=== PATIENT | female | born 1980 | race Caucasian/White ===

== ENCOUNTER 2020-10-17 21:00 | Emergency (ER) | payer OTHER, SELFPAY ==
--- NOTE | 2020-10-17 21:21 | XRR_ITS ---
PROCEDURE INFORMATION: Exam: XR Left Knee Exam date and time: 10/17/2020 10:17 PM Age: 39 years old Clinical indication: Pain and injury or trauma; Other: Not specified; Blunt trauma; Knee; Left; Injury date: 10/14/20; Additional info: Left knee injury TECHNIQUE: Imaging protocol: XR Left knee. Views: 3 views. COMPARISON: No relevant prior studies available. FINDINGS: Bones/joints: Osseous structures of the knee normal. No fracture. No joint effusion. Soft tissues unremarkable. Soft tissues: See Bones/joints finding. XR/XR knee LT 3V* [id number] IMPRESSION: Normal knee.
[2020-10-17 21:32] VITALS: BP 120/68; PULSE 89; RESP 18; TEMP 36.8; O2SAT 99; BMI 21.4
--- NOTE | 2020-10-17 22:25 | ED_ITS ---
HPI - Extremity Problem General: Chief complaint: Extremity Injury, Lower Stated complaint: L KNEE INJURY Time Seen by Provider: 10/17/20 21:42 History of Present Illness: HPI Narrative: Patient is a 39-year-old female comes to the ED with left knee injury. Patient says she was jumping off the back of a truck that on Saturday and hyperextend her left knee when she landed. Patient says she cannot bear any weight on left leg due to knee pain. She reports having some swelling on left knee as well. Associated symptoms: Deny chest pain, fever(s) or rash Review of Systems Const: Denies: fever(s), chills or fatigue Eyes: Denies: change in vision or eye discomfort ENMT: Denies: throat pain, odynophagia, nasal discharge or nasal congestion Card: Denies: chest pain, palpitations, edema, swelling of feet/ankles, dyspnea on exertion or orthopnea Resp: Denies: dyspnea, productive cough or non-productive cough GI: Denies: abdominal pain, nausea, vomiting, diarrhea, constipation or hematochezia : Denies: flank pain, dysuria or hematuria Musc: Reports: extremity pain (left knee pain); Denies: neck pain, back pain or extremity swelling Skin/Breast: Denies: rash or new lesions Neuro: Denies: headache(s), numbness in extremities or weakness in extremities Physical Exam Const: COMMON NORMALS: no acute distress, patient oriented x3, healthy appearing and alert GENERAL APPEARANCE: cooperative and comfortable HENMT: COMMON NORMALS: normocephalic HEAD & SCALP: normocephalic MOUTH: Normal oral and palatal mucosa present THROAT: posterior oropharynx normal and uvula midline Eye: COMMON NORMALS: Equal, round and reactive pupils present PUPIL: Yes Equal, round and reactive pupils present Neck/C-Spine: COMMON NORMALS: supple GENERAL: Yes normal visual inspection Resp: COMMON NORMALS: normal respiratory effort, No retractions, No use of accessory muscles and clear to auscultation bilaterally AUSCULTATION: clear to auscultation bilaterally Cardio: COMMON NORMALS: regular rate, regular rhythm, S1 normal heart sound present, S2 normal heart sound present, No gallops present (Cardio), No clicks present (Cardio), No murmurs present (Cardio) and Peripheral pulses 2+ thr oughout RATE: regular rate RHYTHM: regular rhythm HEART SOUNDS: S1 normal heart sound present and S2 normal heart sound present PERIPHERAL PULSES: Peripheral pulses 2+ throughout GI: COMMON NORMALS: Normal to inspection, nondistended, normoactive bowel sounds present, Soft to palpation, non-tender and no masses PALPATION: Yes Soft to palpation : COMMON NORMALS: Yes no CVA tenderness BLADDER/KIDNEY EXAM: Yes no CVA tenderness Back/Pelvis: COMMON NORMALS: no CVA tenderness Extremity: NARRATIVE EXTREMITY EXAM: Left knee?edema left knee, no visible deformity seen. Patient has tenderness on superior aspect of knee and in the posterior aspect of knee. Pain with range of motion. Neurovascular tact distally. Neuro: COMMON NORMALS: patient oriented x3 and moves all extremities SENSORIUM/ORIENTATION: Yes alert Skin: GENERAL SKIN EXAM: dry skin Course Vital Signs: Vital signs: Vital Signs Temperature 98.2 F 10/17/20 21:32 Pulse Rate 80 10/17/20 22:30 Respiratory Rate 16 10/17/20 22:30 Blood Pressure 106/73 10/17/20 22:30 Pulse Oximetry 100 10/17/20 22:30 MDM - Extremity (Nontraumatic) MDM Narrative: Medical decision making narrative: Patient is a 39-year-old female comes to the ED with left knee injury. Patient was jumping off the back of truck and landed hyperextending left knee. Injury occurred several days ago when she has been unable to bear weight on left leg. Exam shows some swelling around left knee. Tenderness palpation over superior and posterior aspect of knee. Pain with range of motion. Left knee x-ray showed some knee joint effusion but no acute fracture seen. Patient was put in a knee immobilizer and sent home with crutches. She is diagnosed with left knee injury and effusion of knee joint and I placed an order with case management for patient be referred to orthopedic doctor. Patient was discharged home with prescription of ibuprofen 800. She was told to rest ice and elevate left leg. Return to ED precautions given. I told her that clinical case manager will contact her in the next several days set up an appoint with orthopedic doctor. Patient understood and agree with plan. Imaging Data^: Xray Ortho: Attestation: I personally reviewed and interpreted this imaging study as follows: My impression: Left knee x-ray showed no acute fractures. Knee joint effusion seen. Discharge Plan Discharge Patient Disposition: Home Clinical Impression: Effusion of knee joint, left Left knee injury Qualifiers: Encounter type: initial encounter Qualified Code(s): S89.92XA - Unspecified injury of left lower leg, initial encounter Condition: Stable Prescriptions: New ibuprofen 800 mg tablet 800 mg PO Q8H PRN (Reason: pain) Qty: 30 RF: 0 Discharge Orders: Discharge ED (Routine); Ordered 10/17/20 Ordered By: Thomas Bonner Discharge Diet: Regular Discharge Activity: Limit activity as instructed and Use walker/crutches as instructed Patient Instructions: Knee Effusion (ED), Knee Pain (ED), Knee Immobilizer (ED) Activity Restrictions/Additional Instructions: Follow-up with medical provider as directed. Case management will be contacting you in the next several days to set up an appoint with orthopedic doctor for reevaluation. Wear knee immobilizer and ambulate with crutches. No weightbearing on left leg until evaluated by Ortho and given further instructions. Rest ice and elevate left leg. Take medications as prescribed. Return to the ER or your medical provider if condition worsens. Please read and understand discharge instructions. If any questions, please ask. Coding Level of Care Code ED Forensic Document Examiner for Johana Fwd Exam Comprehensive
[2020-10-17 22:30] VITALS: BP 106/73; PULSE 80; RESP 16; O2SAT 100
--- NOTE | 2020-10-18 11:16 | DCPLANNER ---
purchasing manager/sales had message to schedule a follow up appointment for patient with ortho. purchasing manager/sales called the ortho clinic, spoke with Kellen, gave clinic patients information. purchasing manager/sales was told that patients information would be printed and reviewed. Clinic will call patient with appointment information.
--- NOTE | 2020-10-28 14:32 | DCPLANNER ---
Patient had a follow up appointment scheduled for 10.25.[address] Dunne at [facility] - patient did attend appointment.
== END 2020-10-17 22:58 | disposition home or self-care (01) ==
PROVIDERS: Emergency Provider Physician Assistant
DX: M25.462 Effusion, left knee (principal)
CPT/HCPCS: 29530; 73562; 99283; E0114

== ENCOUNTER 2022-01-12 14:09 | Emergency (ER) | payer OTHER, MEDICAID, SELFPAY ==
[2022-01-12 14:38] VITALS: BP 111/73; PULSE 98; RESP 16; TEMP 37; O2SAT 98; BMI 20.7
--- NOTE | 2022-01-12 16:50 | W.ED.ABDPA2 ---
Documented by User: MILE Prater 01/12/22 21:53 HPI - Abdominal Pain General: Chief Complaint: Abdominal Pain Stated Complaint: ABDOMINAL PAIN/ NAUSEA/ LIVER FAILURE Time Seen by Provider: 01/12/22 16:31 Source: patient Mode of arrival: ambulatory Limitations: no limitations History of Present Illness: Patient is a 41-year-old female who presents to ED today with a complaint of epigastric and right upper quadrant pain. Patient tells me she is recently seen at [facility] told her that her gallbladder and liver were inflamed . Triage gave report that she was told she was in liver failure. 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 Her last use was approximately a week ago. She is using IV methamphetamines. No other drug use or alcohol use. Patient states she does have a history of hepatitis C. States she will intermittently have nausea but has not had any episodes of emesis. She reports she has had some issues with constipation and reportedly has not had a bowel movement in 2 weeks. She is still passing flatulence. Patient has not been running fevers. She reports she feels like her eyes are yellowing. She has never underwent treatment for hep C. MD elicited complaint: abdominal pain Pertinent past history: other (hepatitis C) Onset (ago): day(s) Pain Consistency: constant Location: Epigastric and RUQ Quality: aching and dull Radiation: none Migration to: no migration Exacerbating factors: nothing Relieving factors: nothing Associated Symptoms: Reports constipation and nausea; Denies chills, dysuria, fever(s), hematuria and vomiting Related Data: Patient : No Review of Systems Const: Denies: fever(s), chills, body aches, fatigue or malaise Card: Denies: chest pain Resp: Denies: dyspnea GI: Reports: abdominal pain, nausea and constipation; Denies: vomiting : Denies: flank pain, dysuria or hematuria Musc: Denies: neck pain, back pain, extremity pain or joint pain Skin/Breast: Denies: rash Neuro: Denies: headache(s), numbness in extremities, weakness in extremities, sensory changes or dizziness PFS ED PFSH: Social History Smoking and tobacco status: current every day smoker Substance/Drug Use: current Substance/Drug use type: Amphetamines Other substance/drug use details: last use one week ago Physical Exam Const: COMMON NORMALS: no acute distress, patient oriented x3, no limitations, alert and well nourished GENERAL APPEARANCE: cooperative ORIENTATION/CONSCIOUSNESS: Yes awake, Yes oriented to person, Yes oriented to place and Yes oriented to time HENMT: COMMON NORMALS: normocephalic and atraumatic HEAD & SCALP: normal to inspection, normocephalic and atraumatic Eye: COMMON NORMALS: Equal, round and reactive pupils present and EOMs intact bilaterally GENERAL EYE: appearance normal, both eyes and all related structures SCLERA: scleral abnormal Laterality of scleral abnormality: positive bilateral (mild) scleral icterus PUPIL: Yes Equal, round and reactive pupils present Neck/C-Spine: COMMON NORMALS: full ROM, no lymphadenopathy and no meningeal signs Resp: COMMON NORMALS: normal respiratory effort and clear to auscultation bilaterally AUSCULTATION: clear to auscultation bilaterally Cardio: COMMON NORMALS: regular rate and regular rhythm RATE: regular rate RHYTHM: regular rhythm GI: COMMON NORMALS: Normal to inspection, nondistended, normoactive bowel sounds present, Soft to palpation, No hepatosplenomegaly present and no masses INSPECTION: Yes normal to inspection AUSCULTATION: Yes normoactive bowel sounds PALPATION: Yes Soft to palpation, Yes Tenderness to palpation present (GI) (epigastric/RUQ), No Guarding due to palpation present (GI), No Rigid due to palpation and Yes No hepatosplenomegaly present : COMMON NORMALS: Yes no CVA tenderness BLADDER/KIDNEY EXAM: Yes no CVA tenderness Back/Pelvis: COMMON NORMALS: no CVA tenderness, thoracic and lumbar spine normal to inspection, no thoracic nor lumbar tenderness and thoraco-lumbar ROM normal Extremity: COMMON NORMALS: normal to inspection GENERAL: Yes normal exam except as noted Neuro: MELVI COMA SCALE: document GCS findings [facility] coma scale eye opening: Spontaneous [facility] coma scale verbal response: Orientated [facility] coma scale motor response: Obey commands Melvi coma scale total score: 15 COMMON NORMALS: patient oriented x3, moves all extremities, no focal motor deficits and no sensory deficits noted SENSORIUM/ORIENTATION: Yes alert, Yes oriented to person, Yes oriented to place and Yes oriented to time MENINGEAL SIGNS: Yes no meningeal signs Skin: COMMON NORMALS: no rashes or lesions noted GENERAL SKIN EXAM: no rashes or lesions noted Course ED course: Records were obtained from [facility] from her visit on 01/10. This revealed she had an ultrasound of her gallbladder showing no sonographic evidence for acute cholecystitis. Chemistry panel on that visit showed a bilirubin of 1.9, alk phos of 345, AST of 738, and ALT of 590. Consultations: Consultation #1: Dr. Lozoya spoke to Dr. Rae who recommended transfer to a facility with a GI/hepatology team Consultation #2: Dr. Lozoya spoke to physician Dr. Denise Main who accepts patient Vital Signs: Vital signs: Vital Signs Temperature 98.6 F 01/12/22 14:38 Pulse Rate 65 01/12/22 20:34 Respiratory Rate 16 01/12/22 20:34 Blood Pressure 98/64 01/12/22 20:34 Pulse Oximetry 95 01/12/22 20:34 MDM - Abdominal Pain Lab Data : 01/12/22 16:37 01/12/22 16:37 Labs/Radiology: Radiology Impressions Gallbladder Ultrasound 01/12/22 18:14 IMPRESSION: No acute findings. Abdomen/Pelvis CT 01/12/22 18:15 IMPRESSION: 1. Periportal edema noted. This is a nonspecific finding which can be seen with hepatitis. 2. Punctate nonobstructing stone in the right kidney. Laboratory Results WBC 9.6 10^3/uL (4.0-10.0) 01/12/22 16:37 RBC 5.43 10^6/uL (4.1-5.3) H 01/12/22 16:37 Hgb 15.3 g/dL (11.5-15.3) 01/12/22 16:37 Hct 46.0 % (37.0-47.0) 01/12/22 16:37 MCV 84.7 fl (81-99) 01/12/22 16:37 MCH 28.2 pg (28.0-34.0) 01/12/22 16:37 MCHC 33.3 g/dL (30.0-36.0) 01/12/22 16:37 RDW 13.9 % (12.1-15.1) 01/12/22 16:37 Plt Count 149 10^3/cmm (130-400) 01/12/22 16:37 MPV 11.2 fL (7.4-10.4) H 01/12/22 16:37 Lymph % (Auto) Not Reportable 01/12/22 16:37 Island % (Auto) Not Reportable 01/12/22 16:37 Lymph # (Auto) Not Reportable 01/12/22 16:37 [place] # (Auto) Not Reportable 01/12/22 16:37 Total Counted 100 (0-100) 01/12/22 16:37 Atypical Lymphs % 58.0 % (0-5) H 01/12/22 16:37 Absolute Neutrophils 2.0 10^3/cmm (1.4-6.5) 01/12/22 16:37 Segmented Neutrophils 21 % 01/12/22 16:37 Abs Segm Neuts (Man) 2.0 10/cmm (1.6-7.1) 01/12/22 16:37 Band Neutrophils 0.0 % 01/12/22 16:37 Abs Band Neuts (Man) 0.0 10^3/cmm (0.0-1.2) 01/12/22 16:37 Absolute Lymphocytes 7.2 10^3/cmm (1.2-3.4) H 01/12/22 16:37 Lymphocytes (Manual) 17 % 01/12/22 16:37 Monocytes (Manual) 3.0 % 01/12/22 16:37 Absolute Monocytes 0.3 10^3/cmm (0.1-0.6) 01/12/22 16:37 Eosinophils (Manual) 1 % 01/12/22 16:37 Absolute Eosinophils 0.0 10^3/cmm (0.0-0.7) 01/12/22 16:37 Basophils (Manual) 0.0 % 01/12/22 16:37 Absolute Basophils 0.0 10^3/cmm (0.0-0.2) 01/12/22 16:37 Metamyelocytes 0.0 % 01/12/22 16:37 Myelocytes 0.0 % 01/12/22 16:37 Promyelocytes 0.0 % 01/12/22 16:37 Platelet Estimate Normal (Normal) 01/12/22 16:37 PT 15.50 SECONDS (12.1-14.9) H 01/12/22 17:27 INR 1.19 (0.8-1.2) 01/12/22 17:27 APTT 33.8 SECONDS (23.9-36.7) 01/12/22 17:27 Sodium 136 mmol/L (136-145) 01/12/22 16:37 Potassium 4.2 mmol/L (3.5-5.1) 01/12/22 16:37 Chloride 98 mmol/L (98-107) 01/12/22 16:37 Carbon Dioxide 25 mmol/L (22-29) 01/12/22 16:37 Anion Gap 17.2 (5-19) 01/12/22 16:37 BUN 12 mg/dL (6-20) 01/12/22 16:37 Creatinine 0.6 mg/dL (0.5-0.9) 01/12/22 16:37 GFR Calculation 111.3 mL/min (90-130) 01/12/22 16:37 Glucose 95 mg/dL (65-115) 01/12/22 16:37 Calculated Osmolality 282 mOsm/kg (285-295) L 01/12/22 16:37 Lactic Acid 1.0 mmol/L (0.5-2.2) 01/12/22 18:53 Calcium 9.4 mg/dL (8.5-10.5) 01/12/22 16:37 Total Bilirubin 4.3 mg/dL (0.15-1.2) H 01/12/22 16:37 AST 2448 U/L (0-32) H 01/12/22 16:37 ALT 2672 U/L (0-33) H 01/12/22 16:37 Alkaline Phosphatase 395 IU/L (35-105) H 01/12/22 16:37 Total Protein 7.5 g/dL (6.6-8.7) 01/12/22 16:37 Albumin 3.8 g/dL (3.5-5.2) 01/12/22 16:37 Globulin 3.7 g/dL (1.3-4.6) 01/12/22 16:37 Lipase 50 U/L (13-60) 01/12/22 16:37 HCG, Qual Negative (Negative) 01/12/22 17:27 Urine Color Belia (Yellow) 01/12/22 17:19 Urine Appearance Hazy (CLEAR) A 01/12/22 17:19 Urine pH 5 (5-7) 01/12/22 17:19 Ur Specific [place] 1.020 (1.005-1.030) 01/12/22 17:19 Urine Protein Neg (Negative) 01/12/22 17:19 Urine Glucose (UA) Norm (Normal) 01/12/22 17:19 Urine Ketones Negative (Negative) 01/12/22 17:19 Urine Blood 2+ (Negative) H 01/12/22 17:19 Urine Nitrate Negative (Negative) 01/12/22 17:19 Urine Bilirubin 2+ (Negative) H 01/12/22 17:19 Urine Urobilinogen Norm mg/dL (Negative) 01/12/22 17:19 Ur Leukocyte Esterase 1+ (Negative) H 01/12/22 17:19 Urine RBC 15-25 /hpf (0-2) H 01/12/22 17:19 Urine WBC 5-10 /hpf (0-5) H 01/12/22 17:19 Ur Squamous Epith Cells 25-40 /hpf (0-5) H 01/12/22 17:19 Amorphous Sediment Not Reportable 01/12/22 17:19 Urine Bacteria Trace /hpf (NONE) 01/12/22 17:19 Discharge Plan Discharge Patient Disposition: Xfer Short-Term Hosp Clinical Impression: Acute hepatitis, Hyperbilirubinemia Condition: Serious Coding Level of Care Code ED Nut Former for Chg Fwd Exam Comprehensive Documented by User: Freddy Lozoya DO 01/13/22 01:40 HPI - Abdominal Pain General: Chief Complaint: Abdominal Pain Stated Complaint: ABDOMINAL PAIN/ NAUSEA/ LIVER FAILURE Time Seen by Provider: 01/12/22 16:31 PFSH ED PFSH: Social History Smoking and tobacco status: current every day smoker Substance/Drug Use: current Substance/Drug use type: Amphetamines Other substance/drug use details: last use one week ago Physical Exam Neuro: MELVI COMA SCALE: document GCS findings [facility] coma scale total score: 15 Course Vital Signs: Vital signs: Vital Signs Temperature 98.6 F 01/12/22 14:38 Pulse Rate 65 01/12/22 20:34 Respiratory Rate 16 01/12/22 20:34 Blood Pressure 98/64 01/12/22 20:34 Pulse Oximetry 95 01/12/22 20:34 MDM - Abdominal Pain Medical Decision Making This patient was originally seen by Mrs. Hernandez?EVANS Zuniga.? I agree with her history, evaluation, and treatment. This patient has an acute hepatitis of unknown origin. Her bilirubin is gone from 1.948 hours ago to 4.3 tonight. AST and ALT have risen from 730/590 to 2400/2600 respectively. On her hepatitis panel from 48 hours ago at the outside facility, she tested positive only for hepatitis C antibodies. CT and gallbladder ultrasound 48 hours ago were negative. They are repeated tonight, and CT shows periportal edema that is nonspecific. Ultrasound of the gallbladder is negative. Bile ducts are normal. We have no GI or hepatology available at this facility. We have spoken to [facility] in [place]. They are willing to take in transfer and have a bed. Due to exhaustion of local resources in terms of ground ambulance, and the long transfer time required to get to [place], we are requesting her transfer. Lab Data : 01/12/22 16:37 01/12/22 16:37 Labs/Radiology: Radiology Impressions Gallbladder Ultrasound 01/12/22 18:14 IMPRESSION: No acute findings. Abdomen/Pelvis CT 01/12/22 18:15
[2022-01-12 17:23] LABS: Hemoglobin 15.3 g/dL (11.5-15.3); Mean Corpuscular HGB Conc 33.3 g/dL (30.0-36.0); Mean Corpuscular Hemoglobin 28.2 pg (28.0-34.0); Mean Corpuscular Volume 84.7 fl (81-99); Mean Platelet Volume 11.2 fL (7.4-10.4); Platelet Count 149 10^3/cmm (130-400); Red Blood Count 5.43 10^6/uL (4.1-5.3); Red Cell Distribution Width 13.9 % (12.1-15.1); White Blood Count 9.6 10^3/uL (4.0-10.0)
[2022-01-12 17:50] LABS: INR 1.19 (0.8-1.2)
[2022-01-12 17:51] LABS: Partial Thromboplastin Time 33.8 SECONDS (23.9-36.7)
[2022-01-12 17:59] LABS: Albumin Level 3.8 g/dL (3.5-5.2); Alkaline Phosphatase 395 IU/L (35-105); Anion Gap 17.2 (5-19); Blood Urea Nitrogen 12 mg/dL (6-20); Calcium 9.4 mg/dL (8.5-10.5); Carbon Dioxide 25 mmol/L (22-29); Chloride 98 mmol/L (98-107); Creatinine Clr Calc Pharmacy 108.8506; Globulin 3.7 g/dL (1.3-4.6); Glomerular Filtration Rate 111.3 mL/min (90-130); Glucose 95 mg/dL (65-115); Lipase 50 U/L (13-60); Osmolality Calculated 282 mOsm/kg (285-295); Potassium 4.2 mmol/L (3.5-5.1); Sodium 136 mmol/L (136-145); Total Bilirubin 4.3 mg/dL (0.15-1.2); Total Protein 7.5 g/dL (6.6-8.7)
[2022-01-12 18:00] LABS: Eosinophils 1 %; Lymphocytes 17 %; Lymphocytes Absolute 7.2 10^3/cmm (1.2-3.4); Monocytes Absolute 0.3 10^3/cmm (0.1-0.6); Platelet Estimate Normal (Normal); Segmented Neutrophils 21 %; Total Cells Counted 100 (0-100)
[2022-01-12 18:04] LABS: Glucose Urine UA Norm (Normal); Ketones Urine Negative (Negative); Protein Urine Neg (Negative); Urine Appearance Hazy (CLEAR); Urine Color Amber (Yellow); pH Urine 5 (5-7)
[2022-01-12 18:05] LABS: Add Urine Microscopic? YES; Bacteria Urine TRACE /hpf; Bilirubin Urine 2+ (Negative); Blood Urine 2+ (Negative); Leukocyte Esterase Urine 1+ (Negative); Nitrate Urine Negative (Negative); RBC Urine 15-25 /hpf (0-2); Squamous Epithelial Cell Urine 25-40 /hpf (0-5); Urobilinogen Urine Norm (Negative)
[2022-01-12 18:06] LABS: HCG, Serum Qual Negative (Negative)
[2022-01-12 18:06] LABS: Add Urine Culture? No
--- NOTE | 2022-01-12 18:14 | USR_ITS ---
PROCEDURE INFORMATION: Exam: US Abdomen, Limited; Right Upper Quadrant Exam date and time: 01/12/2022 7:19 PM Age: 41 years old Clinical indication: Abdominal pain; Additional info: Upper abdominal pain; Worsening lfts, PT in CT @1900 TECHNIQUE: Imaging protocol: Real time ultrasound of the abdomen with image documentation. Limited exam focused on the right upper quadrant. COMPARISON: CT abdomen pelvis w con* [id number] 01/12/2022 6:33 PM FINDINGS: Liver: Right hepatic lobe measures 13.9 cm in length. No masses. Gallbladder: Normal. No gallstones. There is no gallbladder wall thickening. Biliary ducts: Normal. No stones. No dilation. Pancreas: Visualized pancreas is unremarkable. Right kidney: Right kidney measures 9.3 cm in length. No mass. No hydronephrosis. US/US gall bladder [id number] IMPRESSION: No acute findings.
--- NOTE | 2022-01-12 18:15 | CTR_ITS ---
PROCEDURE INFORMATION: Exam: CT Abdomen And Pelvis With Contrast Exam date and time: 01/12/2022 6:33 PM Age: 41 years old Clinical indication: Abdominal pain; Generalized; Additional info: Upper abdominal pain; Elevated lfts TECHNIQUE: Imaging protocol: Computed tomography of the abdomen and pelvis with contrast. Radiation optimization: All CT scans at this facility use at least one of these dose optimization techniques: automated exposure control; mA and/or kV adjustment per patient size (includes targeted exams where dose is matched to clinical indication); or iterative reconstruction. Contrast material: OMNI 350; Contrast volume: 94 ml; Contrast route: INTRAVENOUS (IV); COMPARISON: No relevant prior studies available. RADIATION DOSE METRICS: Total DLP (mGy-cm): 794.28 FINDINGS: Liver: Periportal edema noted. No mass. Gallbladder and bile ducts: Normal. No calcified stones. No ductal dilation. Pancreas: Normal. No ductal dilation. Spleen: Normal. No splenomegaly. Adrenal glands: Normal. No mass. Kidneys and ureters: Punctate nonobstructing stone in the right kidney series 3, image 40. No hydronephrosis. Stomach and bowel: Unremarkable. No obstruction. No mucosal thickening. Appendix: No evidence of appendicitis. Intraperitoneal space: Trace pelvic free fluid, likely physiologic. No free air. No significant fluid collection. Vasculature: Unremarkable. No abdominal aortic aneurysm. Lymph nodes: Unremarkable. No enlarged lymph nodes. Urinary bladder: Unremarkable as visualized. Reproductive: Corpus luteum noted in the left ovary. Bones/joints: No acute fracture. Soft tissues: Unremarkable. CT/CT abdomen pelvis w con* [id number] IMPRESSION: 1. Periportal edema noted. This is a nonspecific finding which can be seen with hepatitis. 2. Punctate nonobstructing stone in the right kidney.
[2022-01-12 18:22] LABS: Alanine Aminotransferase 2672 U/L (0-33)
[2022-01-12 18:48] LABS: Aspartate Amino Transferase 2448 U/L (0-32)
[2022-01-12 19:43] VITALS: BP 102/65; PULSE 73; RESP 16; O2SAT 99
[2022-01-12] MEDS: sodium chloride 0.9% 1,000 ML 999 ML IV (20:33)
[2022-01-12 20:34] VITALS: BP 98/64; PULSE 65; RESP 16; O2SAT 95
== END 2022-01-12 22:14 | disposition short-term general hospital (02) ==
PROVIDERS: Emergency Provider Physician Assistant
DX: B17.9 Acute viral hepatitis, unspecified (principal); E80.6 Other disorders of bilirubin metabolism; N20.0 Calculus of kidney
CPT/HCPCS: 74177; 76705; 80053; 81001; 83605; 83690; 84703; 85007; 85025; 85610; 85730; 99284; 99285; J7030; Q9967

== ENCOUNTER → 2022-02-28 15:35 | Outpatient (BNVA) | payer OTHER, MEDICAID, SELFPAY | PROVIDERS: Visit Provider Internal Medicine | DX: B17.9 Acute viral hepatitis, unspecified (principal); B18.2 Chronic viral hepatitis C | CPT/HCPCS: 36415; 80053; 85025; 86705; 86706; 86709; 86803; 87340; 87522; 87902 ==

== ENCOUNTER 2022-05-03 08:42 | Outpatient (CLI) | payer OTHER, MEDICAID, SELFPAY ==
--- NOTE | 2022-05-03 08:45 | US_ITS ---
WS: [id number] RIGHT UPPER QUADRANT ULTRASOUND HISTORY: acute hepatitis COMPARISON: 01/12/2022 Liver: 13.1 cm in length. Normal size liver. No bile duct dilatation or mass. Portal Vein: Normal hepatopetal flow with monophasic waveform. Gallbladder: Normally distended gallbladder with no stones or wall thickening. CBD: 0.2 cm Pancreas: Normal size and echogenicity. Right kidney: 9.2 cm in length. Normal size and echogenicity. No hydronephrosis or mass. Aorta and IVC: Unremarkable abdominal aorta and IVC. No ascites. US/US liver [id number] IMPRESSION: Normal RIGHT upper quadrant ultrasound.
== END 2022-05-03 08:43 | disposition home or self-care (01) ==
LOC: RAD 08:44
PROVIDERS: Visit Provider Internal Medicine
DX: B17.9 Acute viral hepatitis, unspecified (principal)
CPT/HCPCS: 76705

== ENCOUNTER → 2022-11-16 09:30 | Outpatient (BNVA) | payer BC, MEDICAID, SELFPAY | PROVIDERS: Referring Provider Nurse Practitioner Family; Visit Provider Obstetrics & Gynecology | DX: Z01.419 Encounter for gynecological examination (general) (routine) without abnormal findings (principal) | CPT/HCPCS: 87624 ==

== ENCOUNTER 2023-10-27 19:46 | Emergency (ER) | payer BC, MEDICAID, SELFPAY ==
--- NOTE | 2023-10-27 19:55 | ECG_ITS ---
[facility] Test Date: 2023-10-27 Pat Name: Jodi Christensen Department: Room: Gender: Female Oracle Engineer: : 1980 Requested By: Robby Jhaveri Order Number: [id number] Reading MD: Angel Shukla M.D. Measurements Intervals [place] Rate: 84 P: 81 [place]: 135 QRS: 81 QRSD: 93 T: 79 QT: 368 QTc: 437 Interpretive Statements SINUS RHYTHM POSSIBLE RIGHT VENTRICULAR CONDUCTION DELAY [RSR (QR) IN V1/V2] No previous ECG available for comparison Electronically Signed On 10-28-2023 15:01:55 CDT by Angel Shukla M.D. [email or web address]
[2023-10-27 19:57] VITALS: BP 97/62; PULSE 107; RESP 18; TEMP 36.8; O2SAT 97; BMI 20.5
[2023-10-27 20:24] LABS: Basophils % 0.6 %; Eosinophils # 0.1 10^3/uL (0.0-0.8); Eosinophils % 2.4 %; Hematocrit 39.6 % (36-47); Lymphocytes # 1.1 10^3/uL (0.8-4.8); Lymphocytes % 20.8 %; Mean Corpuscular HGB Conc 33.3 g/dL (30-55); Mean Corpuscular Hemoglobin 27.6 pg (27-33); Mean Corpuscular Volume 82.8 fl (85-98); Mean Platelet Volume 9.3 fL (7.4-10.4); Monocytes # 0.3 10^3/uL (0.2-0.9); Monocytes % 4.9 %; Neutrophils # 3.64 10^3/uL (1.8-7.7); Neutrophils % 71.3 %; Nucleated Red Blood Cells % 0 %; Platelet Count 368 10^3/cmm (157-399); Red Blood Count 4.78 10^6/uL (3.85-5.65)
[2023-10-27 20:42] LABS: Troponin(5th) Baseline < 6 ng/L (0-10)
[2023-10-27 20:45] LABS: Alanine Aminotransferase 17 U/L (0-33); Albumin Level 4.1 g/dL (3.5-5.2); Alkaline Phosphatase 90 U/L (35-105); Blood Urea Nitrogen 15 mg/dL (6-20); Calcium 8.9 mg/dL (8.5-10.5); Carbon Dioxide 26 mmol/L (22-29); Chloride 102 mmol/L (98-107); Creatinine Clr Calc Pharmacy 80.5617; Globulin 3.3 g/dL (1.3-4.6); Glomerular Filtration Rate 79.4 mL/min (90-130); Glucose 72 mg/dL (65-115); Osmolality Calculated 283 mOsm/kg (285-295); Sodium 137 mmol/L (136-145); Total Protein 7.4 g/dL (6.6-8.7)
[2023-10-27 20:47] LABS: Aspartate Amino Transferase 22 U/L (0-32)
--- NOTE | 2023-10-27 21:05 | ED_ITS ---
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 Since then patient has had increased pain with some numbness in the extremities. Patient denies any falls or injuries. Patient appears nontoxic. Patient is scheduled to follow-up with Dr. Ferreira on the . Review of Systems 2 General: Reports: 10 or more systems reviewed and unremarkable except in HPI and below Musc: Reports: neck pain PFSH ED 2 PFSH: Family History (Updated 11/16/22 @ 08:31 by Mounika Martel CMA) Denies family history of Cervical cancer Colon cancer Ovarian cancer Diabetes Breast cancer Hypertension Uterine cancer Thyroid disease Stroke Social History Smoking and tobacco/nicotine status: current every day tobacco/nicotine user Alcohol intake: current Alcohol intake frequency: few times a week Substance/Drug Use: current Other substance/drug use details: last use one week ago Physical Exam 2 Const: COMMON NORMALS: alert HENMT: COMMON NORMALS: normocephalic HEAD & SCALP: normocephalic Neck/C-Spine: COMMON NORMALS: full ROM (Pain with range of motion) CERVICAL SPINE: Yes Paracervical muscle tenderness Resp: COMMON NORMALS: normal respiratory effort Cardio: COMMON NORMALS: regular rate RATE: regular rate Back/Pelvis: COMMON NORMALS: thoracic and lumbar spine normal to inspection Extremity: COMMON NORMALS: full ROM Neuro: SENSORIUM/ORIENTATION: Yes alert Skin: COMMON NORMALS: turgor normal GENERAL SKIN EXAM: turgor normal Course 2 Vital Signs: Vital signs: Vital Signs Temperature 98.3 F 10/27/23 19:57 Pulse Rate 107 H 10/27/23 19:57 Respiratory Rate 18 10/27/23 19:57 Blood Pressure 97/62 10/27/23 19:57 Pulse Oximetry 97 10/27/23 19:57 Oxygen Delivery Me thod Room Air 10/27/23 19:57 MDM - Neck Pain/Injury Medical Decision Making 42-year-old female comes in today with complaints of pain and discomfort after working on a vehicle on and Saturday changing a power steering pump. Patient has known foraminal stenosis of the cervical spine. Patient believes that she is aggravated this chronic condition causing more increased pain and discomfort. Patient appears nontoxic. Respirations are even. Skin is warm and dry. Vital signs are normal. Differential diagnosis includes but not limited to intervertebral disc disease, facet arthropathy, cervical strain. No imaging was performed due to no fall or injury noted. Believe this patient is probably having aggravation of her chronic condition. Patient was given medication for her pain in the emergency room will be continued on celecoxib, cyclobenzaprine, and some hydrocodone. Patient was recommended to follow back up with orthopedic spine office for an appointment. Patient does admit that she has an appointment for the of this month. Lab Data 10/27/23 20:18 10/27/23 20:18 Laboratory Results WBC 5.10 10^3/uL (3.29-11.43) 10/27/23 20:18 RBC 4.78 10^6/uL (3.85-5.65) 10/27/23 20:18 Hgb 13.20 g/dL (11.27-16.99) 10/27/23 20:18 Hct 39.6 % (36-47) 10/27/23 20:18 MCV 82.8 fl (85-98) L 10/27/23 20:18 MCH 27.6 pg (27-33) 10/27/23 20:18 MCHC 33.3 g/dL (30-55) 10/27/23 20:18 RDW 14.0 % (12.1-15.1) 10/27/23 20:18 Plt Count 368 10^3/cmm (157-399) 10/27/23 20:18 MPV 9.3 fL (7.4-10.4) 10/27/23 20:18 Neut % (Auto) 71.3 % 10/27/23 20:18 Lymph % (Auto) 20.8 % 10/27/23 20:18 [place] % (Auto) 4.9 % 10/27/23 20:18 Eos % (Auto) 2.4 % 10/27/23 20:18 Baso % (Auto) 0.6 % 10/27/23 20:18 Neut # (Auto) 3.64 10^3/uL (1.8-7.7) 10/27/23 20:18 Lymph # (Auto) 1.1 10^3/uL (0.8-4.8) 10/27/23 20:18 [place] # (Auto) 0.3 10^3/uL (0.2-0.9) 10/27/23 20:18 Eos # (Auto) 0.1 10^3/uL (0.0-0.8) 10/27/23 20:18 Baso # (Auto) 0.0 10^3/uL (0.0-0.1) 10/27/23 20:18 Nucleated RBC % (auto) 0 % 10/27/23 20:18 Nucleated RBCs # 0.0 /100WBC 10/27/23 20:18 Sodium 137 mmol/L (136-145) 10/27/23 20:18 Potassium 4.0 mmol/L (3.5-5.1) 10/27/23 20:18 Chloride 102 mmol/L (98-107) 10/27/23 20:18 Carbon Dioxide 26 mmol/L (22-29) 10/27/23 20:18 Anion Gap 13.0 (5-19) 10/27/23 20:18 BUN 15 mg/dL (6-20) 10/27/23 20:18 Creatinine 0.8 mg/dL (0.5-0.9) 10/27/23 20:18 GFR Calculation 79.4 mL/min (90-130) L 10/27/23 20:18 Glucose 72 mg/dL (65-115) 10/27/23 20:18 Calculated Osmolality 283 mOsm/kg (285-295) L 10/27/23 20:18 Calcium 8.9 mg/dL (8.5-10.5) 10/27/23 20:18 Total Bilirubin 1.0 mg/dL (0.15-1.2) 10/27/23 20:18 AST 22 U/L (0-32) 10/27/23 20:18 ALT 17 U/L (0-33) 10/27/23 20:18 Alkaline Phosphatase 90 U/L (35-105) 10/27/23 20:18 Troponin T Baseline < 6 ng/L (0-10) 10/27/23 20:18 Total Protein 7.4 g/dL (6.6-8.7) 10/27/23 20:18 Albumin 4.1 g/dL (3.5-5.2) 10/27/23 20:18 Globulin 3.3 g/dL (1.3-4.6) 10/27/23 20:18 No radiology studies performed this visit Discharge Plan Discharge Patient Disposition: Home Clinical Impression: Cervical radiculopathy Condition: Stable Prescriptions: New celecoxib 200 mg capsule 200 mg PO BID Qty: 20 0RF cyclobenzaprine 10 mg tablet 10 mg PO BID PRN (Reason: muscle spasm) Qty: 20 0RF hydrocodone-acetaminophen 5-325 mg tablet 1 tab PO Q8H PRN (Reason: pain (scale score 7-10)) Qty: 7 0RF No Action pantoprazole 40 mg tablet,delayed release (DR/EC) 40 mg PO QAM Qty: 90 3RF misoprostol [Cytotec] 100 mcg tablet 100 mcg vaginal QID Qty: 4 0RF Rx Instructions: Place intravaginally 4 hours prior to IUD insertion metronidazole 500 mg tablet 500 mg PO BID Qty: 14 0RF Rx Instructions: Twice daily for 7 days Discharge Orders: Discharge ED (Routine); Ordered 10/27/23 Ordered By: Bimal Benson Discharge Diet: Usual diet Discharge Activity: Increase activity as tolerated Patient Instructions: Opioid Safety, Pain Management Activity Restrictions/Additional Instructions: Activity as tolerated. Use ice or heat to help with pain. Take celecoxib routinely for pain and inflammation. Use cyclobenzaprine as needed for muscle pain or spasms. Take hydrocodone for severe pain. Drink plenty of water with medication. Follow-up with primary care for further evaluation. Return to ED for new concerns. Coding Level of Care Code ED Offset Pressman for Johana Noel
[2023-10-27] MEDS: dexamethasone 10 mg/mL INJ IVP (21:27)
[2023-10-27] MEDS: ketorolac 30 mg/mL INJ 15 MG IVP (21:27)
[2023-10-27 21:28] VITALS: RESP 16; O2SAT 98
[2023-10-27] MEDS: fentaNYL 50 mcg/mL INJ 2mL IVP (21:28)
[2023-10-27 21:40] VITALS: BP 102/63; PULSE 98; RESP 14; TEMP 36.8; O2SAT 97
== END 2023-10-27 21:41 | disposition home or self-care (01) ==
PROVIDERS: Emergency Medicine; Emergency Provider Nurse Practitioner Family
DX: M54.12 Radiculopathy, cervical region (principal); Z72.0 Tobacco use
CPT/HCPCS: 36415; 80053; 84484; 85025; 93005; 96374; 96375; 99284; J1100; J1885; J3010

== ENCOUNTER 2024-04-02 15:02 | Outpatient (CLI) | payer BC, MEDICAID, SELFPAY ==
--- NOTE | 2024-04-02 15:05 | MM_ITS ---
WS: [id number] BILATERAL 3D TOMOSYNTHESIS DIGITAL DIAGNOSTIC MAMMOGRAPHY WITH CAD CLINICAL INFORMATION: PAIN OF BOTH BREASTS HISTORY: RIGHT breast pain. Bilateral nipple discharge. COMPARISON: None. TECHNIQUE: Bilateral CC, MLO, and ML views. FINDINGS: The breasts are composed of heterogeneous fibroglandular density, which can limit the detection of sm all underlying mass lesions. Palpable marker and pain marker in the upper outer RIGHT breast and RIGH T axilla. Dense breast tissue upper outer LEFT breast. This partially compresses out on spot compress ion views. Ultrasound of this area will also be obtained. Bilateral ultrasound is pending. ULTRASOUND BREAST BILATERAL TECHNIQUE: Ultrasound bilateral breast focused area of concern. CLINICAL INFORMATION: PAIN OF BOTH BREASTS FINDINGS: RIGHT: Normal appearing RIGHT axillary lymph nodes. Ultrasound RIGHT breast at the 10 o'clock position 6 cm from the nipple an area of pain demonstrates normal underlying dense tissue. No abnormality subareolar RIGHT breast. LEFT: Simple cyst LEFT breast at the 3 o'clock position measuring 4 mm. No abnormality subareolar LEF T breast. Ultrasound upper outer LEFT breast in the area of mammographic abnormality demonstrates nor mal dense tissue. MM/MM diag tomosynthesis [id number] IMPRESSION: DENSITY: The breasts are heterogeneously dense, which may obscure small masses. BI-RADS: 2 - Benign FOLLOW UP: 1 Year Follow-up Recommend return to annual screening mammography.
== END 2024-04-02 15:03 | disposition home or self-care (01) ==
LOC: RAD 15:02
PROVIDERS: Visit Provider Nurse Practitioner Family
DX: N60.02 Solitary cyst of left breast (principal); R92.333 Mammographic heterogeneous density, bilateral breasts; N64.4 Mastodynia
CPT/HCPCS: 76642; 77062; G0279

== ENCOUNTER 2024-06-11 00:27 | Emergency (ER) | payer BC, MEDICAID, SELFPAY ==
[2024-06-11] VITALS (9 sets, daily range): BP systolic 85–103; BP diastolic 55–74; PULSE 80–99; RESP 18; TEMP 36.9; O2SAT 97–99; BMI 22.3
--- NOTE | 2024-06-11 00:36 | XRR_ITS ---
PROCEDURE INFORMATION: Exam: XR Abdomen Exam date and time: 06/11/2024 12:42 AM Age: 43 years old Clinical indication: Abdominal pain; Generalized; Additional info: Abd pain TECHNIQUE: Imaging protocol: Radiologic exam of the abdomen. Views: Frontal supine view of the abdomen. 1 View. COMPARISON: CT abdomen pelvis w con* [id number] 01/12/2022 6:33 PM FINDINGS: Gastrointestinal tract: Diffuse distension of the stomach. Nonspecific, nonobstructive bowel gas pattern. No gaseous over distension seen. Bones/joints: The osseous structures are unremarkable. Other findings: No radiographic evidence of free peritoneal air. XR/XR abdomen 1V* [id number] IMPRESSION: Diffuse distension of the stomach. Otherwise nonobstructive bowel gas pattern.
[2024-06-11 00:41] LABS: Basophils % 0.4 %; Eosinophils # 0.1 10^3/uL (0.0-0.8); Eosinophils % 1.4 %; Hematocrit 48.1 % (36-47); Lymphocytes # 1.9 10^3/uL (0.8-4.8); Lymphocytes % 20.2 %; Mean Corpuscular HGB Conc 33.3 g/dL (30-55); Mean Corpuscular Hemoglobin 27.8 pg (27-33); Mean Corpuscular Volume 83.5 fl (85-98); Mean Platelet Volume 9.6 fL (7.4-10.4); Monocytes # 0.6 10^3/uL (0.2-0.9); Monocytes % 6.4 %; Neutrophils # 6.64 10^3/uL (1.8-7.7); Neutrophils % 71.4 %; Nucleated Red Blood Cells % 0 %; Platelet Count 329 10^3/cmm (157-399); Red Blood Count 5.76 10^6/uL (3.85-5.65); Red Cell Distribution Width 13.1 % (12.1-15.1); White Blood Count 9.31 10^3/uL (3.29-11.43)
--- NOTE | 2024-06-11 00:48 | W.ED.ABDPA2 ---
HPI - Abdominal Pain General: Chief Complaint: Abdominal Pain Stated Complaint: ABD PAIN Time Seen by Provider: 06/11/24 00:29 History of Present Illness: 43-year-old female with a history of methamphetamine abuse who presents emergency room with liver pain by ambulance from home. She admits to doing methamphetamine about 3 days ago says her pain started then. She says her abdomen feels distended. Is afraid she might of gotten poison. She has had some nausea. No known fevers. Related Data Date of Last Menstrual Period: 05/20/24 Previous Rx's Medication Instructions Recorded pantoprazole 40 mg tablet,delayed 40 mg PO QAM #90 tabs 05/14/22 release misoprostol 100 mcg tablet 100 mcg vaginal QID #4 tabs 11/16/22 (Cytotec) metronidazole 500 mg tablet 500 mg PO BID #14 tabs 11/20/22 celecoxib 200 mg capsule 200 mg PO BID #20 caps 10/27/23 cyclobenzaprine 10 mg tablet 10 mg PO BID PRN muscle spasm #20 10/27/23 tabs hydrocodone 5 mg-acetaminophen 325 1 tab PO Q8H PRN pain (scale score 10/27/23 mg tablet 7-10) #7 tabs cephalexin 500 mg tablet 500 mg PO TID 7 days #21 tabs 06/11/24 ondansetron 4 mg disintegrating 4 mg PO Q8H PRN nausea and 06/11/24 tablet vomiting #10 tabs Allergies Allergy/AdvReac Type Severity Reaction Status Date / Time No Known Allergies Allergy Verified 06/11/24 00:33 Review of Systems Narrative: Constitutional symptoms: Negative except as documented in HPI. Skin symptoms: Negative except as documented in HPI. Eye symptoms: Negative except as documented in HPI. ENMT symptoms: Negative except as documented in HPI. Respiratory symptoms: Negative except as documented in HPI. Cardiovascular symptoms: Negative except as documented in HPI. Gastrointestinal symptoms: Negative except as documented in HPI. Genitourinary symptoms: Negative except as documented in HPI. Musculoskeletal symptoms: Negative except as documented in HPI. Neurologic symptoms: Negative except as documented in HPI. Psychiatric symptoms: Negative except as documented in HPI. Endocrine symptoms: Negative except as documented in HPI. PFS ED PFSH: Family History (Updated 11/16/22 @ 08:31 by Mounika Martel [facility]) Denies family history of Cervical cancer Colon cancer Ovarian cancer Diabetes Breast cancer Hypertension Uterine cancer Thyroid disease Stroke Social History Smoking and tobacco/nicotine status: current every day tobacco/nicotine user Alcohol intake: current Alcohol intake frequency: few times a week Substance/Drug Use: current Other substance/drug use details: last use one week ago Female Reproductive History: Date of last menstrual period: 05/20/24 Physical Exam Narrative: EXAM NARRATIVE: General: Alert, no acute distress. Skin: Warm, dry. Head: Normocephalic, atraumatic. Neck: Supple, trachea midline. Eye: Extraocular movements are intact. Ears, nose, mouth and throat: mucosa moist. Cardiovascular: Regular, Normal peripheral perfusion. Respiratory: Lungs are clear to auscultation, respirations are non-labored, breath sounds are equal, Symmetrical chest wall expansion. Gastrointestinal: Soft, moderate generalized tenderness, possibly some mild distention., Musculoskeletal: Normal ROM, no deformity. Neurological: Alert and oriented, No focal neurological deficit observed. Psychiatric: Cooperative, appropriate mood & affect. Course Vital Signs: Vital signs: Vital Signs Temperature 98.5 F 06/11/24 00:28 Pulse Rate 80 06/11/24 02:00 Respiratory Rate 18 06/11/24 00:32 Blood Pressure 94/74 06/11/24 02:00 Pulse Oximetry 97 06/11/24 02:00 Oxygen Delivery Me thod Room Air 06/11/24 00:28 MDM - Abdominal Pain Medical Decision Making Differential diagnosis for patient presenting with right upper quadrant abdominal pain including but not limited to and based on the above HPI, review of systems and physical exam: Cholelithiasis or cholecystitis. Hepatitis. Diverticulitis. Constipation. Ureterolithiasis. Urinary tract infection. Appendicitis. colitis. small bowel obstruction. crohn's flare. pancreatitis. gastritis. peptic ulcer. Aortic disection. Workup including imaging and lab work replaced based on the above differential, history and exam to evaluate differential diagnosis Lab Review: Laboratory results were reviewed and interpreted by myself the emergency room physician. No leukocytosis. No anemia. No renal failure. Liver enzymes are normal. Drug screen positive for marijuana and methamphetamines. Urinalysis does show a very significant urinary tract infection. Abdominal x-ray: Diffuse distention of the stomach. No obstructive pattern. A CT was ordered to further evaluate this. This was reviewed and interpreted by myself the emergency room physician. I also reviewed the radiology report. CT of the abdomen pelvis with contrast: Distention of the stomach as well as mild gastric small bowel wall thickening and nonspecific fecalization of the small bowel. This would indicate may be delayed enteric transit or gastroenteritis. This was reviewed and interpreted by myself the emergency room physician. I also reviewed the radiology report. I reviewed the patient's medical record. Reexamination: Patient remained stable. No increased work of breathing. No altered mental status. No focal motor deficits. Assessment and plan: Vomiting Dehydration Methamphetamine abuse Urinary tract infection ?IV Zofran, IV Toradol IV Rocephin, normal saline bolus, IV Reglan and Benadryl. - Discharged home - Discussed findings and plan with patient. Answered any questions. - All laboratory values were reviewed and interpreted personally by myself, the ER physician - All imaging was reviewed and interpreted personally by myself, the ER physician. - Evaluation and treatment of this problem were appropriate in the emergency setting Lab Data 06/10/24 23:30 06/10/24 23:30 Labs/Radiology: Radiology Impressions Abdomen X-Ray 06/11/24 00:36 IMPRESSION: Diffuse distension of the stomach. Otherwise nonobstructive bowel gas pattern. Abdomen/Pelvis CT 06/11/24 01:02 IMPRESSION: 1. Distension of the stomach, as well as mild gastric and small bowel wall thickening and nonspecific fecalization of the small bowel. The small bowel is normal in caliber, without evidence of obstruction. Findings may represent sequela of gastroenteritis or delayed enteric transit. 2. Thick-walled 1.9 cm cystic lesion within the right ovary, likely a corpus luteal cyst. Laboratory Results WBC 9.31 10^3/uL (3.29-11.43) 06/10/24 23:30 RBC 5.76 10^6/uL (3.85-5.65) H 06/10/24 23:30 Hgb 16.00 g/dL (11.27-16.99) 06/10/24 23:30 Hct 48.1 % (36-47) H 06/10/24 23:30 MCV 83.5 fl (85-98) L 06/10/24 23: MCH 27.8 pg (27-33) 06/10/24 23: MCHC 33.3 g/dL (30-55) 06/10/24 23:30 RDW 13.1 % (12.1-15.1) 06/10/24 23:30 Plt Count 329 10^3/cmm (157-399) 06/10/24 23:30 MPV 9.6 fL (7.4-10.4) 06/10/24 23:30 Neut % (Auto) 71.4 % 06/10/24 23:30 Lymph % (Auto) 20.2 % 06/10/24 23:30 [place] % (Auto) 6.4 % 06/10/24 23:30 Eos % (Auto) 1.4 % 06/10/24 23:30 Baso % (Auto) 0.4 % 06/10/24 23: Neut # (Auto) 6.64 10^3/uL (1.8-7.7) 06/10/24 23:30 Lymph # (Auto) 1.9 10^3/uL (0.8-4.8) 06/10/24 23:30 [place] # (Auto) 0.6 10^3/uL (0.2-0.9) 06/10/24 23:30 Eos # (Auto) 0.1 10^3/uL (0.0-0.8) 06/10/24 23:30 Baso # (Auto) 0.0 10^3/uL (0.0-0.1) 06/10/24 23:30 Nucleated RBC % (auto) 0 % 06/10/24 23:30 Nucleated RBCs # 0.0 /100WBC 06/10/24 23:30 Sodium 139 mmol/L (136-145) 06/10/24 23:30 Potassium 4.1 mmol/L (3.5-5.1) 06/10/24 23:30 Chloride 100 mmol/L (98-107) 06/10/24 23:30 Carbon Dioxide 27 mmol/L (22-29) 06/10/24 23:30 Anion Gap 16.1 (5-19) 06/10/24 23:30 BUN 14 mg/dL (6-20) 06/10/24 23:30 Creatinine 0.8 mg/dL (0.5-0.9) 06/10/24 23:30 GFR Calculation 79.0 mL/min (90-130) L 06/10/24 23:30 Glucose 99 mg/dL (65-115) 06/10/24 23:30 Calculated Osmolality 289 mOsm/kg (285-295) 06/10/24 23:30 Lactic Acid 1.8 mmol/L (0.5-2.2) 06/11/24 00:55 Calcium 9.4 mg/dL (8.5-10.5) 06/10/24 23:30 Total Bilirubin 0.4 mg/dL (0.15-1.2) 06/10/24 23:30 AST 19 U/L (0-32) 06/10/24 23:30 ALT 19 U/L (0-33) 06/10/24 23:30 Alkaline Phosphatase 107 U/L (35-105) H 06/10/24 23:30 C-Reactive Protein 3.0 mg/L (0.0-4.9) 06/10/24 23:30 Total Protein 8.3 g/dL (6.6-8.7) 06/10/24 23:30 Albumin 4.4 g/dL (3.5-5.2) 06/10/24 23:30 Globulin 3.9 g/dL (1.3-4.6) 06/10/24 23:30 Urine Color Dark yellow (Yellow) A 06/11/24 01:11 Urine Appearance Cloudy (CLEAR) A 06/11/24 01:11 Urine pH 6.0 (5-7) 06/11/24 01:11 Ur Specific [place] 1.034 (1.005-1.030) H 06/11/24 01:11 Urine Protein Trace (Negative) A 06/11/24 01:11 Urine Glucose (UA) Negative (Normal) 06/11/24 01:11 Urine Ketones Trace (Negative) 06/11/24 01:11 Urine Blood Negative (Negative) 06/11/24 01:11 Urine Nitrate Negative (Negative) 06/11/24 01:11 Urine Bilirubin Negative (Negative) 06/11/24 01:11 Urine Urobilinogen 1.0 mg/dL (Negative) 06/11/24 01:11 Ur Leukocyte Esterase 1+ (Negative) A 06/11/24 01:11 Urine RBC 11-20 /hpf (0-2) H 06/11/24 01:11 Urine WBC 51-100 /hpf (0-5) H 06/11/24 01:11 Ur Squamous Epith Cells 11-20 /hpf (0-5) 06/11/24 01:11 Amorphous Sediment Not Reportable 06/11/24 01:11 Urine Bacteria 2+ /hpf (NONE) H 06/11/24 01:11 Hyaline Casts 2.87 /lpf 06/11/24 01:11 Urine Opiates Screen Negative ng/mL (Negative) 06/11/24 01:11 Ur Barbiturates Screen Negative ng/mL (Negative) 06/11/24 01:11 Ur Phencyclidine Scrn Negative ng/mL (Negative) 06/11/24 01:11 Ur Amphetamines Screen Positive ng/mL (Negative) H 06/11/24 01:11 U Benzodiazepines Scrn Negative ng/mL (Negative) 06/11/24 01:11 Urine Cocaine Screen Negative ng/mL (Negative) 06/11/24 01:11 U Marijuana (THC) Screen Positive ng/mL (Negative) H 06/11/24 01:11 Ethyl Alcohol < 10 mg/dL (0-10) 06/10/24 23:30 All radiology interpretation(s) finalized by discharge Discharge Plan Discharge Patient Disposition: Home Clinical Impression: Urinary tract infection, Delayed gastric emptying, Methamphetamine abuse, Dehydration Condition: Stable Prescriptions: New cephalexin 500 mg tablet 500 mg PO TID 7 Days Qty: 21 0RF ondansetron 4 mg tablet,disintegrating 4 mg PO Q8H PRN (Reason: nausea and vomiting) Qty: 10 0RF No Action pantoprazole 40 mg tablet,delayed release (DR/EC) 40 mg PO QAM Qty: 90 3RF misoprostol [Cytotec] 100 mcg tablet 100 mcg vaginal QID Qty: 4 0RF Rx Instructions: Place intravaginally 4 hours prior to IUD insertion metronidazole 500 mg tablet 500 mg PO BID Qty: 14 0RF Rx Instructions: Twice daily for 7 days celecoxib 200 mg capsule 200 mg PO BID Qty: 20 0RF cyclobenzaprine 10 mg tablet 10 mg PO BID PRN (Reason: muscle spasm) Qty: 20 0RF hydrocodone-acetaminophen 5-325 mg tablet 1 tab PO Q8H PRN (Reason: pain (scale score 7-10)) Qty: 7 0RF Discharge Orders: Discharge ED (Routine); Ordered 06/11/24 Ordered By: Sri Jones Discharge Diet: Advance as tolerated and Full LIquid Discharge Activity: Increase activity as tolerated Patient Instructions: Urinary Tract Infection in Women (ED), Opioid Safety, Pain Management Activity Restrictions/Additional Instructions: Thank you for choosing [facility] for your healthcare needs today. Please realize this is an emergency room and that we are providing you with a medical screening exam and this may not be complete and all inclusive of all the testing and or work up that you may need to determine your ailment or severity of your illness. You have been screened and evaluated and felt safe for discharge. Health conditions do change or evolve sometimes and as such it is important that you follow up with your Primary Doctor to be re checked, 3-5 days is a general good time frame for follow up. You are always welcome to return to the ED for re assessment if your symptoms are worsening or you have new concerns Coding Level of Care Code ED Machine Folder for Johana Noel
[2024-06-11 00:59] LABS: Alanine Aminotransferase 19 U/L (0-33); Albumin Level 4.4 g/dL (3.5-5.2); Alcohol Level < 10 mg/dL (0-10); Alkaline Phosphatase 107 U/L (35-105); Anion Gap 16.1 (5-19); Aspartate Amino Transferase 19 U/L (0-32); Blood Urea Nitrogen 14 mg/dL (6-20); Calcium 9.4 mg/dL (8.5-10.5); Carbon Dioxide 27 mmol/L (22-29); Chloride 100 mmol/L (98-107); Creatinine Clr Calc Pharmacy 82.4068; Globulin 3.9 g/dL (1.3-4.6); Glucose 99 mg/dL (65-115); Osmolality Calculated 289 mOsm/kg (285-295); Potassium 4.1 mmol/L (3.5-5.1); Sodium 139 mmol/L (136-145); Total Bilirubin 0.4 mg/dL (0.15-1.2); Total Protein 8.3 g/dL (6.6-8.7)
--- NOTE | 2024-06-11 01:02 | CTR_ITS ---
PROCEDURE INFORMATION: Exam: CT Abdomen And Pelvis With Contrast Exam date and time: 06/11/2024 1:11 AM Age: 43 years old Clinical indication: Abdominal tenderness and bloating and nausea; Additional info: Abdominal pain TECHNIQUE: Imaging protocol: Computed tomography of the abdomen and pelvis with contrast. Radiation optimization: All CT scans at this facility use at least one of these dose optimization techniques: automated exposure control; mA and/or kV adjustment per patient size (includes targeted exams where dose is matched to clinical indication); or iterative reconstruction. Contrast material: [id number]; Contrast volume: 100 ml; Contrast route: INTRAVENOUS (IV); COMPARISON: CT abdomen pelvis w con* [id number] 01/12/2022 6:33 PM RADIATION DOSE METRICS: Total DLP (mGy-cm): 366.07 FINDINGS: Lungs: Bibasilar atelectasis. Liver: There is a subcentimeter left hepatic lobe hypodensity, too small to properly characterize. Gallbladder and biliary ducts: The gallbladder is unremarkable. No biliary dilation. Pancreas: The pancreas is unremarkable. Spleen: The spleen is unremarkable. Adrenal glands: The adrenal glands are unremarkable. Kidneys and ureters: The kidneys are unremarkable. Stomach and bowel: Significant distension of the stomach with ingested contents. There is also mild nonspecific fecalization of the small bowel, as well as mild gastric and small bowel wall thickening. No bowel obstruction. Appendix: A normal appendix is identified. Intraperitoneal space: No significant peritoneal free fluid. No free peritoneal air. Vasculature: The vasculature is unremarkable. No aneurysm. Lymph nodes: No enlarged lymph nodes by size criteria. Urinary bladder: The bladder is decompressed, limiting assessment. Reproductive: Thick-walled 1.9 cm cystic lesion within the right ovary, likely a corpus luteal cyst. The left adnexal region is unremarkable. The uterus is unremarkable. Bones/joints: The spine demonstrates mild degenerative changes at multiple levels. Soft tissues: Unremarkable. CT/CT abdomen pelvis w con* [id number] IMPRESSION: 1. Distension of the stomach, as well as mild gastric and small bowel wall thickening and nonspecific fecalization of the small bowel. The small bowel is normal in caliber, without evidence of obstruction. Findings may represent sequela of gastroenteritis or delayed enteric transit. 2. Thick-walled 1.9 cm cystic lesion within the right ovary, likely a corpus luteal cyst.
[2024-06-11] MEDS: iohexol 350 mg/mL 500 mL Btl (per mL) IV (01:14)
[2024-06-11 01:23] LABS: Bacteria Urine 2+ /hpf; Hyaline Casts Urine 2.87 /lpf; WBC Urine 51-100 /hpf (0-5)
[2024-06-11 01:25] LABS: Amphetamines Screen Urine Positive (Negative); Barbiturates Screen Urine Negative (Negative); Benzodiazepines Screen Urine Negative (Negative); Cocaine Screen Urine Negative (Negative); Opiate Screen Urine Negative (Negative); PCP Screen Urine Negative (Negative); THC Screen Urine Positive (Negative)
[2024-06-11 01:27] LABS: Lactic Sepsis W/Reflex 1.8 mmol/L (0.5-2.2)
[2024-06-11 01:32] LABS: Bilirubin Urine Negative (Negative); Blood Urine Negative (Negative); Glucose Urine UA Negative (Normal); Ketones Urine Trace (Negative); Leukocyte Esterase Urine 1+ (Negative); Nitrate Urine Negative (Negative); Protein Urine Trace (Negative); Urine Color Dark Yellow (Yellow)
[2024-06-11 01:33] LABS: Specific Gravity, Urine 1.034 (1.005-1.030); Urine Appearance Cloudy (CLEAR)
[2024-06-11 01:34] LABS: UA Slide Review UA Slide Review Perf
[2024-06-11 01:52] LABS: Add Urine Culture? No
[2024-06-11] MEDS: metoclopramide 5 mg/mL SDV 2 mL 10 MG IVP (02:11)
[2024-06-11] MEDS: diphenhydrAMINE 50 mg/mL SDV 1mL IVP (02:11)
[2024-06-11] MEDS: cefTRIAXone 1,000 mg SDV 1000 MG IVP (02:15)
[2024-06-11] MEDS: sodium chloride 0.9% 1,000 ML 999 ML IV (02:15)
== END 2024-06-11 03:20 | disposition home or self-care (01) ==
PROVIDERS: Emergency Provider Emergency Medicine
DX: N39.0 Urinary tract infection, site not specified (principal); K30 Functional dyspepsia; E86.0 Dehydration; F15.10 Other stimulant abuse, uncomplicated; Z72.0 Tobacco use
CPT/HCPCS: 36415; 74018; 74177; 80053; 80306; 80307; 81001; 83605; 85025; 86140; 96374; 96375; 99285; J0696; J1200; J2765; J7030